=== PATIENT | male | born 1950 | race Caucasian/White ===

== ENCOUNTER 2021-10-22 12:29 | Inpatient (IN) | payer OTHER ==
[~2021-10-22] VITALS: Ht 185.4 cm; Wt 89.8 kg
[2021-10-22 14:46] LABS: BASOPHIL 0.5 % (0-2); EOSINOPHIL 0 % (0-7); HCT 50.7 % (42.0-52.0); LYMPHOCYTE 9.4 % (15-48); MCHC 33.5 g/dL (32.0-36.0); MCV 98.4 fL (78.0-100.0); MONOCYTE 7.8 % (0-12); MPV 10.4 fL (6.0-9.5); NEUTROPHIL 81.5 % (41-80); NRBC 0; PLT 237 K/uL (150-400); RBC 5.15 M/uL (4.70-6.00); RDW 13.5 % (11.5-14.0)
[2021-10-22 14:54] LABS: BUN/CREAT RATIO (CALC) 19.5 RATIO; CREATININE 1.18 mg/dL (0.67-1.17); POTASSIUM 4.3 mmol/L (3.5-5.1)
--- NOTE | 2021-10-22 18:32 | NUR ---
PT GETS HIS MEDS FROM [facility], NUMBER ON FRONT SHEET, UNABLE TO UPDATE IN MED RECONSILE
[2021-10-22] MEDS ORDERED: OXY-IR 5MG5 MG PO (18:45)
[2021-10-22] MEDS ORDERED: NEURONTIN300 MG PO (18:45)
[2021-10-22] MEDS ORDERED: ASPIRIN81 MG PO (18:45)
[2021-10-22] MEDS ORDERED: EFFEXOR-XR 75 M75 MG PO (18:46)
[2021-10-22] MEDS ORDERED: REMERON15 MG PO (18:46)
[2021-10-23 06:53] LABS: HCT 45.1 % (42.0-52.0); HGB 15.2 g/dl (13.2-18.0); MCH 32.8 pg (25.0-31.0); MCHC 33.7 g/dL (32.0-36.0); MCV 97.2 fL (78.0-100.0); MPV 10.3 fL (6.0-9.5); RBC 4.64 M/uL (4.70-6.00); RDW 13.9 % (11.5-14.0); WBC 10.7 K/uL (4.0-10.5)
[2021-10-23 07:13] LABS: BUN/CREAT RATIO (CALC) 23.3 RATIO; CREATININE 1.03 mg/dL (0.67-1.17); POTASSIUM 3.6 mmol/L (3.5-5.1)
[2021-10-23 07:18] LABS: INR 1.19 (0.9-1.2); PROTHROMBIN TIME 14.7 SECONDS (11.9-13.9)
--- NOTE | 2021-10-23 15:33 | NUR ---
10/23/21 An assessment was conducted with Kusum Munoz, friend, when patient was in surgery. Mr. Andrews flew from [place] to visit Ms. Munoz. He does not have children. He has a brother in [place], Ben Andrews, . According to Alexander, Mr. Andrews was making plans to relocate on her property. 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 He has not had an apoointment at [facility]. Ms. Munoz reports that Mr. bradley also has Medicare A and B. She states that he will need SNF for raya because her home is a 2 story log home. - She prefers for him to be placed locally. - Further assessment will be conducted when Mr. Andrews is able to pariticipate.
[2021-10-23 23:46] LABS: BILIRUBIN NEGATIVE (NEGATIVE); BLOOD NEGATIVE Ery/uL (NEGATIVE); CLARITY CLEAR (CLEAR); COLOR YELLOW (YELLOW); GLUCOSE (U) 1+ mg/dL (NORMAL); LEUKOCYTES NEGATIVE Leu/uL (NEGATIVE); NITRITE NEGATIVE (NEGATIVE); PROTEIN TRACE (LOW) mg/dL (NEGATIVE); SPECIFIC GRAVITY 1.025 (1.001-1.030); UROBILINOGEN 0.2 mg/dL (0.2-1.0)
[2021-10-23 23:58] LABS: BACTERIA TRACE
[2021-10-24] LABS: SQUAMOUS EPITHELIAL CELLS RARE
[2021-10-24 06:31] LABS: BASOPHIL 0.1 % (0-2); EOSINOPHIL 0 % (0-7); HCT 37.3 % (42.0-52.0); HGB 12.7 g/dl (13.2-18.0); LYMPHOCYTE 10.5 % (15-48); MCH 33.2 pg (25.0-31.0); MCV 97.4 fL (78.0-100.0); MONOCYTE 9.2 % (0-12); MPV 10.4 fL (6.0-9.5); NEUTROPHIL 79.6 % (41-80); NRBC 0; PLT 178 K/uL (150-400); RBC 3.83 M/uL (4.70-6.00); RDW 13.4 % (11.5-14.0); WBC 12.7 K/uL (4.0-10.5)
[2021-10-24 06:58] LABS: BUN/CREAT RATIO (CALC) 23.1 RATIO; CREATININE 0.91 mg/dL (0.67-1.17); POTASSIUM 4.2 mmol/L (3.5-5.1)
--- NOTE | 2021-10-24 10:25 | NUR ---
10/24/21 Patient's frind, Ms. Munoz, states that she will bring in patient's Medicare card. Admitting has been requested to research for Medicare policy #s.
[2021-10-25 07:50] LABS: BASOPHIL 0.5 % (0-2); EOSINOPHIL 1.6 % (0-7); HCT 39.2 % (42.0-52.0); LYMPHOCYTE 24.1 % (15-48); MCH 32.9 pg (25.0-31.0); MCHC 33.2 g/dL (32.0-36.0); MCV 99.2 fL (78.0-100.0); MONOCYTE 8.8 % (0-12); MPV 11.1 fL (6.0-9.5); NEUTROPHIL 64.3 % (41-80); NRBC 0; PLT 216 K/uL (150-400); RBC 3.95 M/uL (4.70-6.00); RDW 13.6 % (11.5-14.0); WBC 10.4 K/uL (4.0-10.5)
[2021-10-25 08:25] LABS: ALBUMIN 2.6 g/dL (3.4-5.0); BILIRUBIN - TOTAL 0.6 mg/dL (0.2-1.0); BUN/CREAT RATIO (CALC) 19.8 RATIO; CREATININE 0.86 mg/dL (0.67-1.17); GLOBULIN (CALCULATION) 3.7 g/dL; MAGNESIUM 2.1 mg/dL (1.8-2.4); POTASSIUM 4.5 mmol/L (3.5-5.1); TOTAL PROTEIN 6.3 g/dL (6.4-8.2)
[2021-10-26 06:35] LABS: BASOPHIL 0.6 % (0-2); EOSINOPHIL 4.1 % (0-7); HCT 38.5 % (42.0-52.0); HGB 12.7 g/dl (13.2-18.0); LYMPHOCYTE 30.8 % (15-48); MCH 32.6 pg (25.0-31.0); MCV 98.7 fL (78.0-100.0); MONOCYTE 11.8 % (0-12); MPV 10.4 fL (6.0-9.5); NEUTROPHIL 51.4 % (41-80); NRBC 0.3; PLT 227 K/uL (150-400); RDW 13.8 % (11.5-14.0); WBC 7.8 K/uL (4.0-10.5)
[2021-10-28 07:08] LABS: BASOPHIL 0.8 % (0-2); EOSINOPHIL 3.4 % (0-7); HCT 42.4 % (42.0-52.0); LYMPHOCYTE 24.8 % (15-48); MCH 32.4 pg (25.0-31.0); MCV 98.1 fL (78.0-100.0); MONOCYTE 12.2 % (0-12); NEUTROPHIL 56.5 % (41-80); NRBC 0; PLT 240 K/uL (150-400); RBC 4.32 M/uL (4.70-6.00); RDW 13.9 % (11.5-14.0); WBC 7.5 K/uL (4.0-10.5)
[2021-10-28 07:26] LABS: BUN/CREAT RATIO (CALC) 23.4 RATIO; CREATININE 0.77 mg/dL (0.67-1.17); POTASSIUM 3.8 mmol/L (3.5-5.1)
--- NOTE | 2021-10-28 14:57 | NUR ---
10/28/21 [facility] is verify if patient has VA benefits and / or Hosea whittington.
--- NOTE | 2021-10-30 14:08 | NUR ---
10/30/21 Discharge options have been explored with patient, family friends, and insurances. [place] seerv[facility] have not been established in [place], pt does not have SNF coverage through VA, [facility] insurance is a Medicare replacement policy on effective in [place]. The option of flying back to [place] for SNF or HH was explored. [employer] does not fly greater than a 1000 miles. Pt is now walking 80 feet and likely would not qualify for SNF. Kusum Munoz, friend where Mr. Andrews, was staying, has now agreed for Mr. Andrews to come to her home. They are with the understanding that HH services will not be available because there is no PCP or insurance coverage. Ms. Munoz and her daughter, Kayla, will meet with the OT to be educated to a home program. They have a rw. - Recommendations were made for Ms. Munoz and patient to: request for the [place] insurance to be changed to traditional Medicare, establish with a PCP, and then establish with [facility].
[2021-11-03] MEDS ORDERED: FEOSOL325 MG PO (10:04)
[2021-11-03] MEDS ORDERED: SENNOSIDES-DOC1 EACH PO (10:04)
[2021-11-03] MEDS ORDERED: NEURONTIN300 MG PO (10:04)
[2021-11-03] MEDS ORDERED: OXY-IR 5MG5 MG PO (10:04)
--- NOTE | 2021-11-03 10:11 | NUR ---
11/03/21 Mr. Andrews has been approved for admission to [facility]. His friends, Aide or Kusum will provide transportation.
== END 2021-11-03 14:12 | DRG 480 ==
LOC: FER 12:29 → FMS 16:04
PROVIDERS: Allergy & Immunology Allergy; Nurse Practitioner Family; Orthopaedic Surgery; ADMIT Family Medicine
PROC: 0QS706Z Reposition Left Upper Femur with Intramedullary Internal Fixation Device, Open Approach (ICD-10-PCS; principal; 2021-10-23 11:25)
DX: S72.142A Displaced intertrochanteric fracture of left femur, initial encounter for closed fracture (principal); J18.9 Pneumonia, unspecified organism; J96.01 Acute respiratory failure with hypoxia; D62 Acute posthemorrhagic anemia; W19.XXXA Unspecified fall, initial encounter; I95.9 Hypotension, unspecified; N18.2 Chronic kidney disease, stage 2 (mild); G62.9 Polyneuropathy, unspecified; G89.29 Other chronic pain; F32.9 Major depressive disorder, single episode, unspecified; Z87.891 Personal history of nicotine dependence; Z79.899 Other long term (current) drug therapy; Z79.82 Long term (current) use of aspirin
CPT/HCPCS: 36415; 71045; 73501; 73502; 76000; 80048; 80053; 81001; 83605; 83735; 83880; 84145; 85025; 85610; 93005; 94010; 94640; 94760; 97110; 97116; 97161; 97166; 97530; 97530-GP; 97535; C1713; J0697; J1100; J1170; J1885; J1956; J2250; J2270; J2405; J2550; J2704; J3010; J7120; U0002